=== PATIENT | male | born 2000 | race Two or more races ===

== ENCOUNTER 2024-06-01 00:02 | Emergency (ER) | payer BC ==
[~2024-06-01] VITALS: Ht 170.2 cm; Wt 83.9 kg
[2024-06-01 01:03] VITALS: BP 132/66; TEMP 97; O2SAT 98
== END 2024-06-01 01:04 | disposition home or self-care (01) ==
LOC: ER 00:11
DX: S46.812A Strain of other muscles, fascia and tendons at shoulder and upper arm level, left arm, initial encounter (principal); X50.0XXA Overexertion from strenuous movement or load, initial encounter; Y93.89 Activity, other specified; Y92.89 Other specified places as the place of occurrence of the external cause; Y99.8 Other external cause status
CPT/HCPCS: 73030; A4606; A4663